=== PATIENT | male | born 1940 | race Caucasian/White ===

== ENCOUNTER 2018-06-25 09:24 | Outpatient (CLI) | payer BC ==
--- NOTE | 2018-06-25 10:48 | ULT ---
BILATERAL RENAL ULTRASOUND: Date: 06/25/18 HISTORY: UTI. FINDINGS: Right kidney measures 10.4 cm in length. Left kidney measures 8.4 cm in length. There is no evidence of hydronephrosis. Mild cortical thinning and mild increased cortical echogenici ty noted. There is a large exophytic cyst from the lateral right kidney which measures 8-9 cm diameter. Images of the bladder show mild bladder wall thickening. There is a large soft tissue mass projecting into the bladder lumen. This may represent an enlarged prostate; however, bladder wall mass cannot b e excluded by ultrasound. IMPRESSION: 1. Bladder mucosal mass cannot be excluded. Recommend urologic consultation. 2. Large right renal cyst. 3. Mild increased cortical echogenicity. POS: TEVIN
== END 2018-06-25 09:25 | disposition home or self-care (01) ==
LOC: SCSULT 09:24
PROVIDERS: ATTEND Urology
DX: N39.0 Urinary tract infection, site not specified (principal); N28.1 Cyst of kidney, acquired; N28.89 Other specified disorders of kidney and ureter
CPT/HCPCS: 76770

== ENCOUNTER 2020-11-27 13:51 | Inpatient (IN) | payer MEDICARE, BC ==
[~2020-11-27 13:51] MED LIST: Iopamidol-370 76% 500 ML 1 ML ONE
[2020-11-27 14:12] LABS: #Basophils 0.1 thou/uL (0.0-0.2); #Eosinphils 0.3 thou/uL (0.0-0.7); #Lymphocytes 2.6 thou/uL (1.20-3.40); #Monocytes 0.9 thou/uL (0.11-0.59); #Neutrophils 6.6 thou/uL (1.40-6.50); %Basophils 0.6 % (0.0-1.0); %Eosinophils 3.3 % (0.0-10.0); %Lymphocytes 24.6 % (21.0-51.0); %Monocytes 8.6 % (0.0-10.0); %Neutrophils 62.9 % (42.0-75.0); Mean Corpuscular HGB CONC 33.5 g/dL (32.0-36.0); Mean Corpuscular Hemoglobin 30.7 pg (27.0-31.0); Mean Corpuscular Volume 91.6 fL (78.0-98.0); Mean Platelet Volume 7.8 fL (7.4-10.4); Platelet Count 223 thou/uL (130-400); RBC Distribution Width 12.3 % (11.5-14.5); Red Blood Cell (RBC) Count 5.22 mill/uL (4.70-6.10); White Blood Cell (WBC) Count 10.4 thou/uL (4.8-10.8)
[2020-11-27 14:17] LABS: PTT 26.6 sec (22.9-36.1); Prothrombin Time 13.7 sec (12.0-14.7)
--- NOTE | 2020-11-27 14:22 | CT ---
Exam: Head CT without contrast HISTORY: Level 2 stroke. Right-sided numbness, starting at 7:00 AM. Numbness and tingling sensation t o the left COMPARISON: none FINDINGS: Hemorrhage: No intraparenchymal hemorrhage or extra-axial hematoma. Brain parenchyma: Cortical mcarthur-white matter differentiation is preserved. No mass effect or midline shift. Basilar cisterns are patent.There are chronic small vessel ischemic changes of the white matter Ventricular system: Ventricles and sulci are patent and symmetric. Calvarium: Intact. Sinuses and mastoid air cells: Mucous retention cyst in the right sphenoid sinus. IMPRESSION: 1. No acute intracranial process 2. Results study discussed with Dr. Almazan 11/27/2020 and 2:18 PM Code CR
[2020-11-27 14:35] LABS: ALT (SGPT) 42 U/L (8-55); AST (SGOT) 33 U/L (5-34); Albumin 4.2 g/dL (3.4-4.8); Alkaline Phosphatase 105 U/L (40-110); Anion Gap 15 mmol/L (10-20); BUN (Urea Nitrogen) 14 mg/dL (8.4-25.7); Bilirubin, Total 0.6 mg/dL (0.2-1.2); CK (CPK) 358 U/L (30-200); Calc. Creatinine Clearance 0 mL/min (70-130); Calcium 9.7 mg/dL (7.8-10.44); Carbon Dioxide 22 mmol/L (23-31); Chloride 105 mmol/L (98-107); Globulin 3.7 g/dL (2.4-3.5); Glucose 123 mg/dL (83-110); Potassium 4.2 mmol/L (3.5-5.1); Protein, Total 7.9 g/dL (5.8-8.1); Sodium 138 mmol/L (136-145)
--- NOTE | 2020-11-27 14:41 | RAD ---
Exam: Chest one view HISTORY:Right-sided paresthesia Comparison: None FINDINGS: Cardiac silhouette: Normal Aorta: Atherosclerosis Pulmonary vessels: Normal Costophrenic angles: Clear LUNGS: No masses or consolidation. Pneumothorax: None Osseous abnormalities: None IMPRESSION: No acute cardiopulmonary process.
[2020-11-27 14:45] LABS: CKMB 10.2 ng/mL (0-6.6)
--- NOTE | 2020-11-27 14:47 | CT ---
EXAM: CT ANGIOGRAM OF THE HEAD AND NECK INDICATION: Stroke COMPARISON: None TECHNIQUE: CT angiogram of the head and neck are performed in the axial plane. Three-dimensional refo rmatted images are submitted for interpretation. FINDINGS: CTA OF THE HEAD WITH AND WITHOUT CONTRAST: POSTCONTRAST CT OF BRAIN: Pathologic enhancement: No pathologic enhancement the brain. Postcontrast soft tissue neck CT: Aerodigestive tract:Aerodigestive tract is patent. No mucosal abnormality. Limited evaluation of the oral cavity due to dental amalgam artifact. Epiglottis has a normal caliber. Preepiglottic fat is preserved. Sinuses: Right sphenoid sinus mucus retention cyst. Orbits: Bilateral ocular lenses are appropriately located. Both globes are intact. Retrobulbar fat is preserved. Symmetric attenuation the optic nerves and ocular rectus muscles. Salivary glands:Appropriate attenuation of the parotid and submandibular glands. Thyroid gland: Hypodensity in the left thyroid lobe, measures 0.5 cm. Lymph nodes: No evidence of lymphadenopathy by size criteria. Paraspinal muscles: Symmetric attenuation of the sternocleidomastoid muscles. Appropriate attenuation of the paraspinal muscles. Cervical spine:Multilevel facet hypertrophy. No significant central canal stenosis. There are varying degrees of foraminal stenosis secondary to uncovertebral and facet hypertrophy. Technique limits evaluation. Upper mediastinum and lung apices: Incompletely evaluated 0.4 and 0.5 cm solid nodules in the right u pper lobe. CTA OF THE NECK WITH CONTRAST: Aorta: Appropriate enhancement and luminal diameter Right carotid artery: Appropriate enhancement and luminal diameter of the origin of the right carotid artery, innominate artery, common carotid artery, carotid bifurcation and internal carotid artery. There is atherosclerosis involving the right carotid bifurcation and internal carotid artery. No sign ificant stenosis based upon NASCET criteria. Left carotid: Appropriate enhancement and luminal diameter of the origin of the left carotid artery, common carotid artery, carotid bifurcation and internal carotid artery. There is atherosclerosis involving the left carotid bifurcation and proximal internal carotid artery. No significant stenosis based upon NASCET criteria. Subclavian arteries:Symmetric and patent Vertebral arteries:Patent throughout their course of the neck. Dominant left vertebral artery. CTA OF THE BRAIN: Intracranial internal carotid arteries:Appropriate enhancement and luminal diameter Anterior circulation: Appropriate enhancement and luminal diameter of the A1 segment, M1 segments, A2 segments and proximal MCA branches. Intracranial vertebral arteries: Patent. Visualized left and right PICA artery origins are unremarkab le. Posterior circulation: Both vertebral arteries supply normal caliber basilar artery. Left P1 segment has appropriate enhancement and luminal diameter. The right RELOCATION COORDINATOR has a origin. Appropriate enhancement and luminal diameter. IMPRESSION: 1. No hemodynamically significant stenosis, occlusion or aneurysmal formation. Line 2. Incompletely evaluated solid nodules in the right upper lobe. Findings conveyed to Dr. Almazan 11/27/2020 at 2:46 PM Code CR Code LN Transcribed Date/Time: 11/27/2020 3:06 PM
[2020-11-27] MEDS ORDERED: Aspirin Chewable 81 MG TAB ONE (15:09)
[2020-11-27] MEDS ORDERED: niCARdipine 20MG In NaCl 20 MG/200 ML BAG ONE (15:09)
[2020-11-27] MEDS ORDERED: Labetalol HCl 100 MG/20 ML VIAL SLOW IVP PRN (17:14)
--- NOTE | 2020-11-27 17:21 | PDOC.BPN ---
- Brief Progress Note [id number] HP
[2020-11-27 17:23] LABS: Troponin I 0.136 ng/mL (< 0.028)
[2020-11-27 17:49] VITALS: BMI 32.3
[2020-11-27] MEDS: Heparin 5,000 UNITS/ML VIAL SC SCH (20:04)
[2020-11-27] MEDS: Atorvastatin Calcium 40 MG TAB PO SCH (20:04)
[2020-11-27 20:16] LABS: Troponin I 0.132 ng/mL (< 0.028)
--- NOTE | 2020-11-27 21:42 | HP ---
CHIEF COMPLAINT: Right-sided numbness. HISTORY OF PRESENT ILLNESS: Mr. Alonso is an 80-year-old male with past medical history of benign prostatic hypertrophy, presents to the emergency room with right upper extremity and right lower extremity numbness that began around 7:00 a.m. this morning. The patient wake up at 5:30 a.m. Around 7:00 a.m., he had sudden onset of right-sided paresthesia. He denies any weakness, though he did fall while walking in his garage because his right leg would not hold him up. He saw his primary care physician, Dr. Weber, who recommended that the patient come to the emergency room for possible CVA. He did not immediately present to the emergency room, but brother went home until his son was able to convince him to come. He stated that he had similar paresthesia of the right upper some time ago, but was not seen at that time. He denies any history of CVA or TIA in the past. He denies any history of hypertension, diabetes mellitus, or hyperlipidemia. In the emergency room, the patient was hypertensive with systolic blood pressure more than 100 to 110. The patient was started on IV Cardene drip and his blood pressure went down to . He gave instructions to the ER nurse to hold a Cardene drip to try to keep his systolic blood pressure more than 180 because we cannot entirely rule out CVA at this time. His initial CAT scan is negative. CTA of the brain and neck, no acute finding. The patient is being admitted to the hospital for further management. PAST MEDICAL HISTORY: 1. History of benign prostatic hypertrophy. 2. Hypertension in the records, but the patient denies. The patient does not take medicine for blood pressure. PAST SURGICAL HISTORY: Left shoulder surgery. SOCIAL HISTORY: Denies smoking, alcohol drinking, or drug abuse. FAMILY HISTORY: Reviewed and noncontributory. HOME MEDICATIONS: See home medication reconciliation form for updated medications. ALLERGIES: NO KNOWN ALLERGIES. REVIEW OF SYSTEMS: Review of 14 systems negative except what is mentioned in history of present illness. PHYSICAL EXAMINATION: GENERAL: The patient is awake and alert. VITAL SIGNS: Blood pressure was as high was 210/103, latest blood pressure 186/81, pulse is 71. HEAD AND NECK: Normocephalic, atraumatic. Neck is supple. CHEST: Fair bilateral air entry. HEART: S1 and S2. Regular. ABDOMEN: Soft, nontender. Bowel sounds present. NEUROLOGIC: Awake, alert, oriented x4. Motor strength 5/5 in all extremities. Decreased sensation in the right upper extremity and right lower extremity. PSYCHIATRIC: Unable to assess. GENITOURINARY: No suprapubic tenderness. No flank tenderness. LABORATORY DATA: WBC 10.4, hemoglobin 16, platelets 223. Sodium 138, potassium 4.2, BUN 14, creatinine 0.9, glucose 123. Troponin is 0.14. CT of the brain, no acute finding. CTA of brain and neck, no hemodynamically significant stenosis or occlusion or aneurysmal formation. Chest x-ray, no acute findings. ASSESSMENT: 1. Right-sided numbness? Acute cerebrovascular accident. 2. Hypertensive urgency/emergency? 3. Elevated troponin. The patient denies chest pain. PLAN: 1. Admit. 2. We will allow for permissive hypertension, cannot rule out entirely acute CVA. The patient was initially started on Cardene drip because of his systolic blood pressure more than 210. We will allow for permissive hypertension and keep blood pressure more than 190 systolic. 3. Aspirin. 4. Statin. 5. MRI of the brain. 6. 2D echo. 7. PT/OT eval and treat. 8. Consult Neurology in a.m. 9. Case discussed with the patient and the patient's son. Job ID: [id number]
[2020-11-28 04:06] LABS: Cardiac Risk 4.7 (Less than 4.5)
--- NOTE | 2020-11-28 10:12 | MRI ---
MRI BRAIN WITHOUT CONTRAST: Date: 11/28/2020 HISTORY: TIA. FINDINGS: Correlation made with previous day's CT scan. There is a small focal area of restricted diffusion in the left thalamus consistent with acute lacuna r infarction. Multiple foci of T2 prolongation in the periventricular white matter consistent with ch ronic small vessel ischemic disease. There is cortical atrophy. The ventricular size is appropriate a nd the basilar cisterns are patent. There is a mucus retention cyst versus polyp in the right sphenoi d sinus. IMPRESSION: Acute lacunar infarction in the left thalamus. POS: OFF
[2020-11-28] MEDS: Aspirin 81 mg Enteric Coated Tablet PO SCH (10:32)
[2020-11-28] MEDS: Heparin 5,000 UNITS/ML VIAL SC SCH ×2 (10:32→20:00)
--- NOTE | 2020-11-28 12:33 | CON ---
NEUROLOGY CONSULTATION DATE OF CONSULTATION: 11/28/2020 REASON FOR CONSULTATION: Right-sided numbness. HISTORY OF PRESENT ILLNESS: Mr. Alonso is an 80-year-old male with medical history significant for benign prostatic hypertrophy, presented to the emergency room around 7:00 a.m. on 11/27/2020 with right upper extremity and lower extremity numbness that began around 7:00 a.m. 11/27/2020 per the patient. The patient denies any focal weakness, nausea, vomiting, headache, chest pain, abdominal pain, double vision, problems with swallowing, or speech associated with the symptoms. He denies any prior history of CVA or TIA. In the emergency room, he was found to be hypertensive with diastolic blood pressure more than 110. He was started on intravenous Cardene drip, which controlled his blood pressure and head CT was done, which was negative for acute intracranial pathology. CT of the head and neck did not reveal any acute findings. He was admitted for further evaluation. The patient denies nausea, vomiting, headache, chest pain, abdominal pain, recent illness, or recent exposure to COVID-19. He also denies dizziness, vertigo, double vision, loss of vision, loss of consciousness, or involuntary abnormal movements associated with focal paresthesias on the right. ALLERGIES: NKDA PAST MEDICAL HISTORY: Benign prostatic hypertrophy, hypertension, but the patient does not take any medicine for blood pressure. PAST SURGICAL HISTORY: Left shoulder surgery. SOCIAL HISTORY: The patient denies smoking, alcohol, or illegal drug abuse. FAMILY HISTORY: No family history of stroke. REVIEW OF SYSTEMS: All systems reviewed and were negative except the pertinent positives and negatives mentioned in the HPI. PHYSICAL EXAMINATION: VITAL SIGNS: Blood pressure 170/100, pulse 80, respiratory rate 18. CVS: Regular rate and rhythm. CHEST: Clear. ABDOMEN: Soft. NECK: Supple. NEUROLOGIC: Mental status, the patient is alert and oriented to person, place, and time. Recent and remote memory, intact. Fund of knowledge is appropriate. Speech is clear. Cranial nerves 2 through 12 intact. Motor, muscle tone and bulk are normal. Strength 5/5 bilaterally. Sensory, decreased sensation to light touch in the right upper and lower extremity. Cerebellar, finger-nose testing intact. Gait deferred due to the patient's safety reason. DATA REVIEWED: I reviewed the CT scan of the head, which was negative for acute intracranial pathology. CTA of the head and neck did not reveal hemodynamically significant stenosis. ASSESSMENT AND PLAN: Mr. Ronen Alonso is an 80-year-old male with medical history significant for hypertension, and benign prostatic hypertrophy, presented with sudden onset of tingling and paresthesias in the right upper and lower extremity. MRI of the brain reviewed, which was positive for acute infarction in the left thalamus which explains his symptoms. Continue aspirin and high- intensity statin for secondary stroke prevention. 2D echo to evaluate for left ventricular ejection fraction and to rule out PFO. Continue telemetry to rule out arrhythmias. CT of the head and neck reviewed, which was negative for hemodynamically significant stenosis. Neuro checks every 4 hours. Permissive control of blood pressure at this time. Strict control of blood glucose. Check hemoglobin A1c, TSH, and fasting lipid panel. Continue home medications. Continue medical management per primary team. PT/OT/Speech. Deep venous thrombosis prophylaxis. We will continue to follow. Thank you for the consult. Plan discussed in detail with the patient, son at bedside, and also with the primary attending, Dr. Khan, and the nursing staff. Job ID: [id number] [facility]
--- NOTE | 2020-11-28 14:28 | PDOC.HOSPP ---
- Subjective Encounter Date: 11/28/20 Encounter Time: 08:45 Subjective: awake, oriented well, ate his breakfast is right handed, still has parasthesias in right extremities, is able to move and has good strength though. no chest pain or palp or sob - Objective Vital Signs & Weight: Vital Signs (12 hours) Temp Pulse Ox 11/28/20 07:55 96 11/28/20 07:00 98.2 F 11/28/20 04:00 98.1 F Weight Weight 232 lb 2.348 oz Most Recent Monitor Data Heart Rate from ECG 62 NIBP 159/93 NIBP BP-Mean 115 Respiration from ECG 19 SpO2 99 I&O: 11/27/20 11/28/20 11/29/20 06:59 06:59 06:59 Intake Total 390 Output Total 975 500 Balance -975 -110 Result Diagrams: 11/27/20 14:02 11/27/20 14:02 Hospitalist ROS - Medication Medications: Active Medications Generic Name Dose Route Start Last Admin Trade Name Freq PRN Reason Stop Dose Admin Aspirin 81 mg 11/28/20 09:00 11/28/20 10:32 Aspirin 81 Mg Enteric Coated Tablet PO 81 mg DAILY TIFF Administration Atorvastatin Calcium 40 mg 11/27/20 21:00 11/27/20 20:04 Atorvastatin Calcium 40 Mg Tab PO 40 mg HS TIFF Administration Heparin Sodium (Porcine) 5,000 units 11/27/20 21:00 11/28/20 10:32 Heparin 5,000 Units/Ml Vial SC 5,000 units Q12HR TIFF Administration Sodium Chloride 10 ml 11/27/20 16:29 11/27/20 20:05 Flush - Normal Saline 10 Ml Syringe IVF 10 ml PRN PRN Administration Saline Flush Hospitalist Exam Vitals: Vital Signs (12 hours) Temp Pulse Ox 11/28/20 07:55 96 11/28/20 07:00 98.2 F 11/28/20 04:00 98.1 F Weight Weight 232 lb 2.348 oz Most Recent Monitor Data Heart Rate from ECG 62 NIBP 159/93 NIBP BP-Mean 115 Respiration from ECG 19 SpO2 99 General Appearance: awake alert Eye: PERRL, anicteric sclera ENT: no oropharyngeal lesions, moist mucosa Neck: supple, no JVD Heart: RRR, no murmur Respiratory: no wheezes, no rales Gastrointestinal: soft, non-tender, non-distended, normal bowel sounds Extremities: no cyanosis, no edema Neurological: cranial nerve grossly intact Neurological - other findings: no motor deficits, has sensory deficits in right extremities Psychiatric: normal affect, A&O x 3 Hosp A/P (1) Acute CVA (cerebrovascular accident) Code(s): I63.9 - CEREBRAL INFARCTION, UNSPECIFIED Status: Acute (2) HTN (hypertension) Code(s): I10 - ESSENTIAL (PRIMARY) HYPERTENSION Status: Acute Qualifiers: Hypertension type: essential hypertension Qualified Code(s): I10 - Essential (primary) hypertension (3) BPH (benign prostatic hyperplasia) Code(s): N40.0 - BENIGN PROSTATIC HYPERPLASIA WITHOUT LOWER URINRY TRACT SYMP Status: Chronic Qualifiers: Lower urinary tract symptom presence: symptoms absent Qualified Code(s): N40.0 - Benign prostatic hyperplasia without lower urinary tract symptoms (4) Obesity (BMI 30.0-34.9) Code(s): E66.9 - OBESITY, UNSPECIFIED Status: Chronic - Plan is on asp, lipitor and norvasc, continue home dose proscar and flomax has left thalamic ac infarct with sensory deficits on right extremities motor strength in right extremities are 5/5 h/o falls at home with current cva, prefer inpt rehab if he agrees or outpt rehab Vs HH with PT hemo/neurostable tx to stroke unit, PT/OT to start mobilizing as tolerated likely dc plan in am echo is pending
[2020-11-28] MEDS: Atorvastatin Calcium 40 MG TAB PO SCH (20:00)
[2020-11-28] MEDS: Tamsulosin HCl 0.4 MG CAP PO SCH (20:00)
--- NOTE | 2020-11-28 20:13 | CON ---
DATE OF CONSULTATION: 11/28/2020 HISTORY OF PRESENT ILLNESS: Mr. Alonso is a pleasant 80-year-old male, who presented with right-sided sensory paresthesias. He denies having any motor weakness. Apparently, according to the admission history and physical, he did fall in the garage because his right leg was weak. His symptoms have stabilized. PAST MEDICAL HISTORY: Remarkable for; 1. BPH. 2. History of hypertension. 3. History of shoulder surgery. SOCIAL HISTORY: He is a nonsmoker and nondrinker. FAMILY HISTORY: Negative for lung disease in early age. REVIEW OF SYSTEMS: Ten points otherwise negative. PHYSICAL EXAMINATION: VITAL SIGNS: Heart rates in the 60s, blood pressure 157/84, respiratory rate 16, and oximetry is 99. HEENT: Pupils are equal. Sclerae are anicteric. Face is symmetrical. NECK: Supple. No lymphadenopathy. LUNGS: Clear. HEART: Regular rhythm. S1 and S2 are normal. No murmurs heard. ABDOMEN: Soft and nontender. EXTREMITIES: Without clubbing, cyanosis, or edema. He has a loss of proprioception in his right lower extremity. He appears to have symmetrical strength. He does have decreased sensation to light touch in both upper and lower extremities. IMAGING STUDIES: CT of his head showed nothing. After he was seen by me this morning, an MRI of his brain was done, showing a left thalamic infarct. IMPRESSION: Cerebrovascular accident with mainly sensory symptoms at this time. Hopefully, he will continue to improve. Blood pressures in the 150s and ideally his pressure should be 150 to 170 systolic at this point in time. TIME SPENT: 70-minute consult,greater than 50% of the time was spent on the unit coordinating care. Job ID: [id number] [facility]
[2020-11-29 07:30] LABS: #Basophils 0.1 thou/uL (0.0-0.2); #Eosinphils 0.5 thou/uL (0.0-0.7); #Lymphocytes 2.4 thou/uL (1.20-3.40); #Monocytes 0.8 thou/uL (0.11-0.59); #Neutrophils 4.3 thou/uL (1.40-6.50); %Basophils 0.9 % (0.0-1.0); %Eosinophils 6.2 % (0.0-10.0); %Lymphocytes 30.3 % (21.0-51.0); %Monocytes 9.6 % (0.0-10.0); Mean Corpuscular HGB CONC 34.8 g/dL (32.0-36.0); Mean Corpuscular Hemoglobin 32.1 pg (27.0-31.0); Mean Corpuscular Volume 92.3 fL (78.0-98.0); Mean Platelet Volume 7.8 fL (7.4-10.4); Platelet Count 194 thou/uL (130-400); Red Blood Cell (RBC) Count 4.67 mill/uL (4.70-6.10); White Blood Cell (WBC) Count 8.1 thou/uL (4.8-10.8)
[2020-11-29 07:46] LABS: Anion Gap 12 mmol/L (10-20); BUN (Urea Nitrogen) 17 mg/dL (8.4-25.7); Calc. Creatinine Clearance 83 mL/min (70-130); Calcium 9.1 mg/dL (7.8-10.44); Carbon Dioxide 26 mmol/L (23-31); Chloride 104 mmol/L (98-107); Glucose 143 mg/dL (83-110); Potassium 4.2 mmol/L (3.5-5.1); Sodium 138 mmol/L (136-145)
[2020-11-29 07:49] VITALS: BP 159/92; TEMP 97.8
[2020-11-29] MEDS: Aspirin 81 mg Enteric Coated Tablet PO SCH (08:11)
[2020-11-29] MEDS: Tamsulosin HCl 0.4 MG CAP PO SCH (08:11)
[2020-11-29] MEDS: Heparin 5,000 UNITS/ML VIAL SC SCH (08:12)
[2020-11-29] MEDS ORDERED: Amlodipine 10 MG TAB PO SCH (09:00)
[2020-11-29] MEDS ORDERED: Finasteride 5 MG TAB PO SCH (09:00)
--- NOTE | 2020-11-29 11:32 | DIS ---
DATE OF ADMISSION: 11/27/2020 DATE OF DISCHARGE: 11/27/2020 PRIMARY CARE PROVIDER: Dre Weber MD. DISPOSITION: Discharged home with outpatient physical therapy. DIAGNOSES: Acute cerebrovascular accident, hypertension, benign prostatic hypertrophy, dyslipidemia. DISCHARGE MEDICATIONS: 1. Amlodipine 10 mg a day. 2. Aspirin 81 mg a day. 3. Lipitor 40 mg a day. 4. Proscar 5 mg a day. 5. Flomax 0.4 mg twice a day. ALLERGIES: NO KNOWN ALLERGIES. CODE STATUS: Full. PENDING AT TIME OF DISCHARGE: Nothing. DIET: Heart healthy. HOSPITAL COURSE: The patient presented with numbness on the right side and clumsiness on the right. Brain CT was unremarkable. CT [place], no stenosis. He did have incompletely evaluated nodules in the right upper lobe of lungs. Outpatient further study recommended. Brain MRI revealed an acute lacunar infarct in the left thalamus. Physical therapy and physical exam demonstrated cranial nerves 2 through 12 with a mild right spastic hemiplegia. Consultation was obtained with Neurology, Dr. Jeanne Woodruff, and Dr. Dre Greene, Pulmonology. The patient's initial laboratory; CBC normal. INR 1.0. Comprehensive metabolic profile, blood sugars 123. His renal function was normal. His troponins were 0.14, 0.14, 0.13, not considered significant because of their level. The patient currently progressing well with physical therapy using a walker. He is being discharged to follow up with his PCP in three to seven days. His initial blood pressures were remarkably elevated in the 200 systolic area. He was started on Norvasc 10 mg a day. His current blood pressures are running minimally elevated 145/77 and 158/81. We will need to be carefully monitored in the future. Prognosis is good. When I examine the gentleman today, his cranial nerves 2 through 12 are intact. Strength symmetric. Past pointing on finger-nose finger on the right, otherwise unremarkable neurological exam except for decreased sensation on the right. Job ID: [id number] [facility]
== END 2020-11-29 12:50 | disposition home or self-care (01) | DRG 65 ==
LOC: SUATTDRO 13:51 → ERS 13:51 → CCU 15:40 → 2SE 11-28 14:13
PROVIDERS: ADMIT Internal Medicine; ATTEND Internal Medicine
DX: I63.81 Other cerebral infarction due to occlusion or stenosis of small artery (principal); G81.11 Spastic hemiplegia affecting right dominant side; Z20.822 Contact with and (suspected) exposure to COVID-19; R29.701 NIHSS score 1; I10 Essential (primary) hypertension; N40.0 Benign prostatic hyperplasia without lower urinary tract symptoms; R20.2 Paresthesia of skin; E66.9 Obesity, unspecified; E78.5 Hyperlipidemia, unspecified; Z68.32 Body mass index [BMI] 32.0-32.9, adult; Z91.19 Patient's noncompliance with other medical treatment and regimen
CPT/HCPCS: 36415; 36416; 70450; 70496; 70498; 70551; 71045; 80048; 80053; 80061; 82550; 82553; 84484; 85025; 85610; 85730; 93005; 93306; 94760; 96365; J1644; Q9967

== ENCOUNTER 2021-11-14 04:49 | Emergency (ER) | payer BC, MEDICARE ==
[2021-11-14 05:55] LABS: #Eosinphils 0.1 thou/uL (0.0-0.7); #Lymphocytes 1.5 thou/uL (1.20-3.40); #Monocytes 0.9 thou/uL (0.11-0.59); #Neutrophils 5.7 thou/uL (1.40-6.50); %Basophils 0.5 % (0.0-1.0); %Eosinophils 1.8 % (0.0-10.0); %Monocytes 11.2 % (0.0-10.0); %Neutrophils 68.5 % (42.0-75.0); Hemoglobin 13.3 g/dL (14.0-18.0); Mean Corpuscular HGB CONC 33.5 g/dL (32.0-36.0); Mean Corpuscular Hemoglobin 30.7 pg (27.0-31.0); Mean Corpuscular Volume 91.5 fL (78.0-98.0); Mean Platelet Volume 8.1 fL (7.4-10.4); Platelet Count 158 thou/uL (130-400); RBC Distribution Width 12.5 % (11.5-14.5); Red Blood Cell (RBC) Count 4.33 mill/uL (4.70-6.10); White Blood Cell (WBC) Count 8.3 thou/uL (4.8-10.8)
[2021-11-14 06:18] LABS: ALT (SGPT) 18 U/L (8-55); AST (SGOT) 18 U/L (5-34); Albumin 3.3 g/dL (3.4-4.8); Alkaline Phosphatase 94 U/L (40-110); Anion Gap 12 mmol/L (10-20); BUN (Urea Nitrogen) 14 mg/dL (8.4-25.7); Bilirubin, Total 0.9 mg/dL (0.2-1.2); Calc. Creatinine Clearance 0 mL/min (70-130); Calcium 8.6 mg/dL (7.8-10.44); Carbon Dioxide 22 mmol/L (23-31); Chloride 109 mmol/L (98-107); Globulin 3.2 g/dL (2.4-3.5); Glucose 121 mg/dL (83-110); Potassium 3.5 mmol/L (3.5-5.1); Protein, Total 6.5 g/dL (5.8-8.1); Sodium 139 mmol/L (136-145)
== END 2021-11-14 06:37 | disposition home or self-care (01) ==
LOC: ERS 04:49
DX: R55 Syncope and collapse (principal); I10 Essential (primary) hypertension
CPT/HCPCS: 36415; 71045; 80053; 84484; 85025; 93005